=== PATIENT | female | born 1985 | race Caucasian/White ===

== ENCOUNTER 2017-11-02 20:35 | Emergency (ER) | payer MEDICAID, SELFPAY ==
[2017-11-02] MEDS ORDERED: Bupivacaine 0.5% 10 ML VIAL ONE (20:43)
[2017-11-02] MEDS ORDERED: Adacel (T-DAP) 0.5 ML VIAL ONE (20:50)
[2017-11-02] MEDS ORDERED: Amoxicillin/Potassium Clav 875 MG TAB ONE (22:11)
--- NOTE | 2017-11-02 22:19 | RAD ---
LEFT HAND THREE VIEWS: 11/02/2017 FINDINGS: An opaque foreign body is present in the web space of the thenar region, between the thumb and the in dex finger. There is soft tissue air present here as well. No fracture is seen. IMPRESSION: Opaque foreign body in the soft tissues of the thenar region, with associated soft tissue air. POS: HOME
--- NOTE | 2017-11-02 22:19 | RAD ---
LEFT HAND TWO VIEWS: 11/02/2017 FINDINGS: The foreign body seen previously has been removed. No residual is present, but there is still some s oft tissue air apparent. IMPRESSION: Foreign body removed. POS: HOME
== END 2017-11-02 22:14 | disposition home or self-care (01) ==
LOC: BURERS 20:35
DX: S61.422A Laceration with foreign body of left hand, initial encounter (principal); F17.210 Nicotine dependence, cigarettes, uncomplicated; Z71.6 Tobacco abuse counseling; W25.XXXA Contact with sharp glass, initial encounter
CPT/HCPCS: 12001; 90471; 90715; 99406; J3490

== ENCOUNTER 2019-05-19 17:06 | Emergency (ER) | payer OTHER ==
--- NOTE | 2019-05-19 22:43 | RAD ---
RIGHT ANKLE THREE VIEWS: 05/19/19 No acute fracture was seen. An os fibulare or old healed fracture at the distal fibula is noted. The articular surfaces of the ankle joint are smooth. The surrounding bones appear intact. IMPRESSION: No acute bony findings. POS: HOME
== END 2019-05-19 17:50 | disposition home or self-care (01) ==
LOC: BURERS 17:06
DX: S93.401A Sprain of unspecified ligament of right ankle, initial encounter (principal); F17.210 Nicotine dependence, cigarettes, uncomplicated; X50.9XXA Other and unspecified overexertion or strenuous movements or postures, initial encounter